=== PATIENT | male | born 1985 | race Caucasian/White ===

== ENCOUNTER 2019-08-20 13:00 | Emergency (ER) | payer MEDICAID ==
[~2019-08-20] VITALS: Ht 180.3 cm; Wt 72.6 kg
[2019-08-20 13:07] VITALS: BP 144/87
--- NOTE | 2019-08-20 14:15 | NUR ---
called for bed and not in the waiting room
--- NOTE | 2019-08-20 14:19 | NUR ---
left without being seen by
== END 2019-08-20 14:19 | disposition left against medical advice (07) ==
LOC: ER 13:00
DX: M54.2 Cervicalgia (principal); Z53.21 Procedure and treatment not carried out due to patient leaving prior to being seen by health care provider

== ENCOUNTER 2019-09-04 12:35 | Emergency (ER) | payer MEDICAID ==
[~2019-09-04] VITALS: Ht 182.9 cm; Wt 74.8 kg
[2019-09-13] MEDS ORDERED: LIDOCAINE 1%-EPI 1:100,000 20 ML VIAL ONE (12:48)
--- NOTE | 2019-09-13 12:55 | NUR ---
PT PRESENTED TO THE ER WITH A C/O RT FOOT LAC AND L ELBOW LAC.
[2019-09-13] MEDS ORDERED: TDAP [DIPH/PERTUSSIS/TET] 0.5 ML VIAL IM ONE ×2 (12:58→13:00)
[2019-09-13] MEDS ORDERED: LIDOCAINE 1%-EPI 1:100,000 50 ML VIAL IJ ONE (13:00)
--- NOTE | 2019-09-13 14:55 | NUR ---
Patient discharged to home in stable condition. Written and verbal after care instructions given. Patient verbalizes understanding of instruction. Crutches dispensed. Pt instructed on proper use of crutches. Patient able to demonstrate correct use of crutches. VSS.
[2019-09-13 15:21] VITALS: BP 152/98
== END 2019-09-13 15:22 | disposition home or self-care (01) ==
LOC: ER 09-13 12:35
DX: S91.311A Laceration without foreign body, right foot, initial encounter (principal); S51.012A Laceration without foreign body of left elbow, initial encounter; W25.XXXA Contact with sharp glass, initial encounter; Y93.89 Activity, other specified; Y92.89 Other specified places as the place of occurrence of the external cause; Y99.8 Other external cause status
CPT/HCPCS: 12004; 73080; 73630; 90471; 90715; 99284; J3490 ×2

== ENCOUNTER 2019-09-24 19:30 | Emergency (ER) | payer MEDICAID ==
[~2019-09-24] VITALS: Ht 180.3 cm; Wt 72.6 kg
[2019-09-24] MEDS ORDERED: IV NS 0.9% 1,000 ML BAG IV ONE (20:00)
[2019-09-24 20:15] LABS: BASOPHILS # (AUTO) 0.1 /CMM (0.0-0.2); BASOPHILS % (AUTO) 1.1 % (0.0-2.0); EOSINOPHILS % (AUTO) 3.6 % (0.0-6.0); HEMATOCRIT 36 % (39-51); LYMPHOCYTES # (AUTO) 2.8 /CMM (0.8-4.8); LYMPHOCYTES % (AUTO) 29.1 % (20.0-44.0); MEAN CORPUSCULAR HGB CONC 33 g/dl (31.0-36.0); MEAN CORPUSCULAR VOLUME 92 fL (80-96); MONOCYTES # (AUTO) 0.6 /CMM (0.1-1.30); MONOCYTES % (AUTO) 6.9 % (2.0-12.0); NEUTROPHILS # (AUTO) 5.6 /CMM (1.8-8.9); NEUTROPHILS % (AUTO) 59.3 % (43.0-81.0); PLATELET COUNT (AUTO) 378 /CMM (150-450); RED BLOOD CELL COUNT(AUTO) 3.89 MIL/uL (4.5-6.0); WHITE BLOOD COUNT (AUTO) 9.5 K/uL (4.3-11.0)
[2019-09-24] MEDS ORDERED: CLINDAMYCIN 300 MG in IV NS 0.9% 50 ML IV ONE (20:30)
[2019-09-24 20:31] LABS: CALCIUM, SERUM 9.1 mg/dL (8.5-10.1); CREATININE 0.9 mg/dL (0.6-1.3); POTASSIUM 3.9 mmol/L (3.5-5.1)
[2019-09-24] MEDS ORDERED: PIPERACILLIN /TAZOBACTAM 3.375 G VIAL IV ONE (21:05)
--- NOTE | 2019-09-24 21:06 | NUR ---
[facility] D/C'D BY Nessa MAYO PA-C. NEW ORDERS GIVEN.
[2019-09-24] MEDS ORDERED: PIPERACILLIN /TAZOBACTAM 3.375 G in IV D5W 50 ML IV ONE (21:30)
--- NOTE | 2019-09-24 21:39 | NUR ---
CALLED [facility], PAGED TADEO MAI
--- NOTE | 2019-09-24 21:49 | NUR ---
PT APPEARS TO BE RESTING COMFORTABLY WITH NO S/S OF PAIN OR DISTRESS.
--- NOTE | 2019-09-24 21:50 | NUR ---
PT IS GOING TO 320-2
--- NOTE | 2019-09-24 21:52 | NUR ---
CALLING REPORT TO MS
--- NOTE | 2019-09-24 21:54 | NUR ---
REPORT GIVEN TO TY DAMON
[2019-09-24 21:58] VITALS: BP 135/75
--- NOTE | 2019-09-24 22:02 | NUR ---
PT WAS ABOUT TO BE TRANSPORTED UPSTAIRS WHEN PT DECIDED NOT TO STAY. [facility] [place] PAC NOTIFIED AND IS AWARE.
--- NOTE | 2019-09-24 22:04 | NUR ---
B MARIA ESTHER, PAC IS AT THE BEDSIDE.
--- NOTE | 2019-09-24 22:24 | NUR ---
Note isaura in ED - 09/24/19 at 2225 by [email or web address] Patient does not wish to proceed with medical care recommended by . Patient given information related to possible complications, up to and including , which could occur as a result of leaving the hospital at this time. Patient verbalizes understanding of risks involved due to leaving against medical advice. Patient has signed AMA form.
--- NOTE | 2019-09-24 22:25 | NUR ---
Patient does not wish to proceed with medical care recommended by MARY KITCHEN. Patient given information related to possible complications, up to and including , which could occur as a result of leaving the hospital at this time. Patient verbalizes understanding of risks involved due to leaving against medical advice. Patient has signed AMA form.
--- NOTE | 2019-09-24 22:25 | NUR ---
IV removed. Catheter intact and site benign. Pressure and 4x4 applied to site. No bleeding noted. Patient discharged to home in stable condition. Written and verbal after care instructions given. Patient verbalizes understanding of instruction AND RX. PT'S RT FOOT IS GETTING A DRESSING. PT'S FRIEND IS DRIVING PT HOME. PT WAS INSTRUCTED TO RETURN IN 3 DAYS FOR WOUND CHECK AND POSSIBLE SUTURE REMOVAL.
== END 2019-09-24 21:56 | disposition other institution (70) ==
LOC: ER 19:32 → MED 21:53 → UNDOADMIN 21:53
DX: S91.311D Laceration without foreign body, right foot, subsequent encounter (principal); S51.012D Laceration without foreign body of left elbow, subsequent encounter; L03.115 Cellulitis of right lower limb; F17.200 Nicotine dependence, unspecified, uncomplicated; X58.XXXD Exposure to other specified factors, subsequent encounter
CPT/HCPCS: 36415; 80048; 85025; 87040 ×2; 87081; 96365; 99283; A4216; J2543 ×2; J3490; J7030; J7060